=== PATIENT | female | born 1945 | race Caucasian/White ===

== ENCOUNTER → 2017-03-16 | Outpatient (CLI) | payer BC ==
[~2017-03-16] MED LIST: CHOL100010 PO; FLR1 PO; HYD10 PO; LEVO75TA PO; MULT-506 PO; [UNRECOGNIZED DRUG - CODE] PO
--- NOTE | 2017-03-17 14:30 | MAMMOGRAPHY REPORT ---
BILATERAL DIGITAL SCREENING MAMMOGRAM TOMOSYNTHESIS WITH CAD: 03/16/2017 CLINICAL HISTORY: Routine screening. Patient has no complaints. TECHNIQUE: Breast tomosynthesis in addition to standard 2D mammography was performed. Current study was also evaluated with a Computer Aided Detection (CAD) system. COMPARISON: Comparison is made to exams dated: 03/06/2015 mammogram, 03/14/2016 mammogram, 4 mammogram, 03/04/2013 mammogram, 03/03/2012 mammogram, and 02/26/2011 mammogram - [facility]. BREAST COMPOSITION: The tissue of both breasts is almost entirely fatty. FINDINGS: No suspicious mass, architectural distortion or cluster of microcalcifications is seen. T here are mild vascular calcifications in the breasts. A few scattered benign-appearing round and coa rse calcifications. IMPRESSION: ACR BI-RADS CATEGORY 1: NEGATIVE There is no mammographic evidence of malignancy. A 1 year screening mammogram is recommended. The pa tient will receive written notification of the results. Approximately 10% of breast cancers are not detected with mammography. A negative mammographic report should not delay biopsy if a clinically suggestive mass is present. Cassie Magana M.D. ay/:03/16/2017 15:09:26 Pants Presser: Jordyn HOOKSR, M, [facility] letter sent: Normal 1/2 BI-RADS Code: ACR BI-RADS Category 1: Negative
== END | disposition home or self-care (01) ==
LOC: C.MAMM 13:05
PROVIDERS: ATTEND Family Medicine
DX: Z12.31 Encounter for screening mammogram for malignant neoplasm of breast (principal)

== ENCOUNTER → 2017-07-13 | Outpatient (CLI) | payer BC | END | disposition home or self-care (01) | LOC: C.MAMM 12:50 | PROVIDERS: ATTEND Internal Medicine Endocrinology, Diabetes & Metabolism | DX: M85.88 Other specified disorders of bone density and structure, other site (principal); M85.851 Other specified disorders of bone density and structure, right thigh; M85.852 Other specified disorders of bone density and structure, left thigh ==

== ENCOUNTER → 2017-08-06 | Outpatient (CLI) | payer BC ==
--- NOTE | 2017-08-06 14:36 | DIAGNOSTIC IMAGING REPORT ---
CHEST 2 VIEWS ROUTINE CLINICAL HISTORY: Shortness of breath and cough. COMPARISON STUDY: Chest radiograph May 28, 2007. FINDINGS: Lung volumes are normal. No pneumothorax or pleural effusion is noted. There is mild elevation/eventration of the right hemidiaphragm. Dilatation is identified. There is no evidence for pulmonary edema. Mild loss of height of the superior endplate of L2 is unchanged since MRI of August 25, 2014. IMPRESSION: No acute cardiopulmonary findings. Electronically signed by: Chato Pereira M.D. 08/06/2017 2:34 PM Dictated Date/Time: 08/06/2017 2:28 PM
== END | disposition home or self-care (01) ==
LOC: C.RAD1850 14:15
PROVIDERS: ATTEND Student in an Organized Health Care Education/Training Program
DX: R06.09 Other forms of dyspnea (principal)